=== PATIENT | female | born 1995 | race Hispanic/Latino ===

== ENCOUNTER 2017-08-12 16:25 | Emergency (ER) | payer OTHER ==
[2017-08-12 17:08] LABS: Bilirubin Negative (Negative); Blood, Urine Negative (Negative); Clarity CLEAR (Clear); Glucose, Urine (Dipstick) Negative (Negative); Leukocyte Small (Negative); Nitrite Negative (Negative); Protein, Urine (Dipstick) Negative (Neg-Trace); Specific Gravity, Urine 1.021 (1.002-1.036); pH, Urine 7.5 (5.0-9.0)
[2017-08-12 17:17] LABS: #Basophils 0.1 thou/uL (0.0-0.2); #Eosinphils 0.3 thou/uL (0.0-0.7); #Lymphocytes 1.5 thou/uL (1.20-3.40); #Neutrophils 5.3 thou/uL (1.40-6.50); %Basophils 1.3 % (0.0-1.0); %Eosinophils 3.2 % (0.0-10.0); %Lymphocytes 18.3 % (21.0-51.0); %Monocytes 11.9 % (0.0-10.0); %Neutrophils 65.3 % (42.0-75.0); Hemoglobin 11.3 g/dL (12.0-16.0); Mean Corpuscular HGB CONC 33.7 g/dL (32.0-36.0); Mean Corpuscular Hemoglobin 30.3 pg (27.0-31.0); Mean Corpuscular Volume 90.1 fl (81.0-99.0); Mean Platelet Volume 9.1 fL (7.4-10.4); Platelet Count 221 thou/uL (130-400); RBC Distribution Width 11.7 % (11.5-14.5); Red Blood Cell (RBC) Count 3.71 mill/uL (4.20-5.40); White Blood Cell (WBC) Count 8.1 thou/uL (4.8-10.8)
[2017-08-12 17:20] LABS: Bacteria/HPF Rare-Few HPF (None Seen); Hyaline Casts/LPF 0-3 HYALINE CAST LPF (0-3 Hyaline); Pathc Cast-AUWi Flag 0.13 (0-2.49); RBC/HPF 0-3 HPF (0-3)
--- NOTE | 2017-08-12 17:45 | ULT ---
PELVIC ULTRASOUND 08/12/17 HISTORY: Vaginal discharge and pain. Positive home test two weeks ago. TECHNIQUE: Multiplanar awad scale and color doppler images were obtained in a transabdominal pelvic ultrasound. Spectral analysis of the doppler waveforms of the ovaries were performed. FINDINGS: There is a gestational sac within the uterus. This contains a pole with a crown-rump length of 0.67 cm. This estimates gestational age at 6 weeks, 4 days. A yolk sac is seen within the gestational sac. A heart rate is detected at 118 beats per minute. No free fluid is seen in the pelvis. A dominant follicle is seen in the right ovary. Normal flow is s een within both ovaries. IMPRESSION: Single live intrauterine with estimated age of 6 weeks 4 days. POS: ISATU
[2017-08-15 03:15] LABS: Chlamydia by PCR Not Detected (NotDetected); GC by PCR Not Detected (NotDetected)
== END 2017-08-12 18:32 | disposition home or self-care (01) ==
LOC: ERS 16:25
DX: O20.0 Threatened abortion (principal); O99.89 Other specified diseases and conditions complicating pregnancy, childbirth and the puerperium; N89.8 Other specified noninflammatory disorders of vagina; Z3A.01 Less than 8 weeks gestation of pregnancy
CPT/HCPCS: 36415; 76856; 81003; 81015; 84702; 85025; 86900; 86901; 87086; 87480; 87491; 87510; 87591; 87660; 93976

== ENCOUNTER 2018-03-26 14:58 | Inpatient (IN) | payer OTHER ==
[~2018-03-26 14:58] MED LIST: Bupivacaine/Epinephrine 0.25% 30 ML VIAL ONE
[2018-03-26] MEDS: Lactated Ringer's 1,000 ML IV SCH ×2 (15:35→22:13)
[2018-03-26 15:55] VITALS: BMI 26.2
[2018-03-26] MEDS ORDERED: Promethazine HCl 25 MG/ML VIAL IM PRN ×2 (16:18)
[2018-03-26] MEDS ORDERED: Misoprostol 200 MCG TAB PR PRN (16:18)
[2018-03-26] MEDS ORDERED: Butorphanol Tartrate 1 MG/ML VIAL SLOW IVP PRN (16:18)
[2018-03-26] MEDS ORDERED: Lidocaine 1% (PF) 30 ML VIAL SC PRN ×2 (16:18)
[2018-03-26] MEDS ORDERED: Acetaminophen 500 MG TAB PO PRN (16:18)
[2018-03-26] MEDS ORDERED: Ibuprofen 800 MG TAB PO PRN (16:18)
[2018-03-26] MEDS ORDERED: HYDROcodone/Acetaminophen 5/325 mg Tablet PO PRN (16:18)
[2018-03-26] MEDS ORDERED: NS / Oxytocin 40 units/1000ml 1,000 ML IV PRN (16:18)
[2018-03-26] MEDS ORDERED: Zolpidem Tartrate 5 MG TAB PO PRN (16:18)
[2018-03-26] MEDS ORDERED: Ondansetron HCl/PF 4 MG/2 ML Vial IVP PRN ×2 (16:18)
[2018-03-26 16:29] LABS: Hemoglobin 10.2 g/dL (12.0-16.0); Mean Corpuscular HGB CONC 32.6 g/dL (32.0-36.0); Mean Corpuscular Hemoglobin 26.8 pg (27.0-31.0); Mean Corpuscular Volume 82.4 fL (78.0-98.0); Platelet Count 187 thou/uL (130-400); RBC Distribution Width 13.9 % (11.5-14.5); Red Blood Cell (RBC) Count 3.81 mill/uL (4.20-5.40); White Blood Cell (WBC) Count 8.8 thou/uL (4.8-10.8)
[2018-03-26] MEDS ORDERED: NS w/ Oxytocin 10 units 500 ML IV SCH (16:30)
[2018-03-26] MEDS ORDERED: Misoprostol 100 MCG TAB ONE (16:34)
[2018-03-26] MEDS: Misoprostol 100 MCG TAB VAG SCH (16:40)
[2018-03-26 16:59] LABS: HBSAg Index 0.18 S/CO (0-0.99); Hep B Surf Ag Non-Reactive S/CO (NonReactive); Syphilis Antibody Nonreactive (Nonreactive); Syphilis Antibody Index 0.03 S/CO (<1.00 Non-Reactive)
[2018-03-26 17:00] LABS: ALT (SGPT) 10 U/L (8-55); AST (SGOT) 17 U/L (5-34); Albumin 3.5 g/dL (3.5-5.0); Alkaline Phosphatase 364 U/L (40-150); Anion Gap 15 mmol/L (10-20); BUN (Urea Nitrogen) 8 mg/dL (7.0-18.7); Bilirubin, Total 0.2 mg/dL (0.2-1.2); Calc. Creatinine Clearance 150 mL/min (70-130); Calcium 8.9 mg/dL (7.8-10.44); Carbon Dioxide 18 mmol/L (22-29); Chloride 107 mmol/L (98-107); Estimated GFR-MDRD Greater than 90; Glucose 75 mg/dL (70-105); Protein, Total 6.5 g/dL (6.0-8.3); Sodium 136 mmol/L (136-145)
[2018-03-26] MEDS ORDERED: diphenhydrAMINE 25 MG CAP PO SCH (17:15)
--- NOTE | 2018-03-26 17:26 | PDOC.LDHP ---
Labor and Delivery H&P Chief complaint: scheduled induction HPI: 22 y/o LAF at 38 weeks 3 days by edc of 04/06. Reports increased itching all over body and rash. increased swelling. Denies headache or ruq pain. Some decreased movement. Was noted to be hypertensive in my office with blood pressure 134/98 and 150/96. Urine protein dip was negative.Rash c/w PUPPPS vs cholestasis... Current gestational age (weeks): 38 Due date: 04/06/18 Grav: 1 Para: 0 Current complications: gestational hypertension Abnormal US findings: No Current medications: pre- vitamins Previous surgical history: none Allergies/Adverse Reactions: Allergies Allergy/AdvReac Type Severity Reaction Status Date / Time No Known Allergies Allergy Verified 03/26/18 15:56 Social history: none - Physical Exam General: NAD Heart: RRR Lungs: CTAB Abdomen: gravid Extremeties: trace edema FHT: category 1 - Vaginal Exam cm dilated: 1 Effacement: 50% Station: -1 - OB Labs Blood type: A RH: positive Antibody Screen: negative HIV: negative RPR: negative HEPSAg: negative 1 hour GCT: negative GBS: negative Urine drug screen: not done Rubella: immune - Assessment L&D Assessment: medically indicated induction (Mild gestational hypertension. PUPPPS vs cholestastis with skin rash due to scratching. cytotec induction. Pre eclmpsia lab check. prn labetolol or magnesium for severe criteria.)
[2018-03-26] MEDS ORDERED: Labetalol HCl 100 MG/20 ML VIAL SLOW IVP PRN (19:09)
[2018-03-26] MEDS: diphenhydrAMINE 25 MG CAP PO PRN (23:47)
[2018-03-27] MEDS: Misoprostol 100 MCG TAB VAG SCH ×4 (00:11→06:39)
[2018-03-27] MEDS: diphenhydrAMINE 25 MG CAP PO PRN ×2 (06:17→12:42)
[2018-03-27] MEDS: Lactated Ringer's 1,000 ML IV SCH ×2 (06:17→09:58)
[2018-03-27] MEDS ORDERED: DISCONTINUE ALL PREVIOUS NARCOTICS FS SCH (08:30)
[2018-03-27] MEDS ORDERED: Naloxone HCl 0.4 mg/ml Vial IVP PRN ×2 (09:53)
[2018-03-27] MEDS ORDERED: Acetaminophen 325 MG TAB PO PRN (09:53)
[2018-03-27] MEDS ORDERED: Lactated Ringer's 500 ML IV PRN (09:53)
[2018-03-27] MEDS ORDERED: Promethazine HCl 25 MG/ML VIAL IM PRN (09:53)
[2018-03-27] MEDS ORDERED: ePHEDrine/0.9% NaCl/PF SYRINGE 50 mg/10 ml SLOW IVP PRN (09:53)
[2018-03-27] MEDS ORDERED: diphenhydrAMINE 50 MG/ML VIAL IVP PRN (09:53)
[2018-03-27] MEDS ORDERED: Ondansetron HCl/PF 4 MG/2 ML Vial IVP PRN (09:53)
[2018-03-27] MEDS ORDERED: Eucerin (Mineral Oil/Petrolatum,White) 30 gm Jar TOP PRN (09:53)
[2018-03-27] MEDS: Bupivacaine 0.5% 20 ML, fentaNYL Citrate/PF 400 MCG in Sodium Chloride 0.9% 72 ML EPIDURAL SCH ×2 (09:59→16:04)
[2018-03-27] MEDS ORDERED: Communication Order-Pharmacy FS SCH (10:00)
[2018-03-27] MEDS ORDERED: fentaNYL Citrate/PF 400 MCG, Bupivacaine 0.5% 20 ML in Sodium Chloride 0.9% 72 ML EPIDURAL SCH (10:00)
[2018-03-27] MEDS ORDERED: Fentanyl 100 MCG/2 ML VIAL ONE (15:48)
[2018-03-27] MEDS ORDERED: Acetaminophen 1,000 MG in Premix Bag 1 BAG IVPB SCH (19:00)
[2018-03-27] MEDS ORDERED: Bisacodyl 10 MG SUPP PR PRN (20:18)
[2018-03-27] MEDS ORDERED: Benzocaine/Menthol 20-0.5% 60 ML CAN TOP PRN (20:18)
[2018-03-27] MEDS ORDERED: Milk Of Magnesia 30 ML UDCUP PO PRN (20:18)
[2018-03-27] MEDS ORDERED: Preparation H Ointment 28 GM TUBE PR PRN (20:18)
[2018-03-27] MEDS ORDERED: Adacel (T-DAP) 0.5 ML VIAL IM ONE (20:18)
[2018-03-27] MEDS ORDERED: Lanolin Ointment 7 GM TUBE TOP PRN (20:18)
[2018-03-27] MEDS ORDERED: NS / Oxytocin 40 units/1000ml 1,000 ML IV SCH (20:30)
[2018-03-27] MEDS ORDERED: Carboprost 250 MCG/ML AMP ONE (20:50)
--- NOTE | 2018-03-27 21:20 | PDOC.OPDEL ---
OB Operative/Delivery Note Delivery Dr/Surgeon: Sanya Pre-Delivery Diagnosis: medically indicated induction Procedure/Post Delivery Dx: operative vaginal delivery Weeks gestation: 38 Anesthesia: epidural - Findings A Sex: female - 1 min: 9 - 5 min: 9 - Additional Findings/Plan Placenta delivered: spontaneous Repaired Obstetrical Laceration: 2nd degree Estimated blood loss: 1433 ml QBL Compilations/Other Findings: Post hemorrhage due to atony. Vigorous bimaual massage with 250 mg im hemabate/800mcg cytotec/ one gram txa given with resolution... Post delivery plan: recovery in LICU (for PPH monitoring)
--- NOTE | 2018-03-27 21:29 | PDOC.EVN ---
Event Note - Event Note Event Note: [employer]CH[employer]ICIAN SHELBY NOTE: PP note: @2129: Delivery by Sanya...PPH: Reviewed care with Sanya. PPH of approx 1433ml...slight tachycardia at 110. T& C for 2 units, we will give 1 unit now for pulse and suspected drop in HCT. PreHCT was 31. We will keep on L&D tonight. Negron to monitor UOP. Has received: 800mcg cytotec, 250mg hemabate, and TXA 1 gram per ACOG.
[2018-03-27 21:49] LABS: Hemoglobin 8.1 g/dL (12.0-16.0); Mean Corpuscular HGB CONC 31.5 g/dL (32.0-36.0); Mean Corpuscular Hemoglobin 26.4 pg (27.0-31.0); Mean Corpuscular Volume 83.7 fL (78.0-98.0); Mean Platelet Volume 10.4 fL (7.4-10.4); Platelet Count 154 thou/uL (130-400); RBC Distribution Width 13.8 % (11.5-14.5); Red Blood Cell (RBC) Count 3.07 mill/uL (4.20-5.40); White Blood Cell (WBC) Count 20.6 thou/uL (4.8-10.8)
[2018-03-27] MEDS ORDERED: HYDROcodone/Acetaminophen 5/325 mg Tablet PO PRN (22:39)
[2018-03-28] MEDS ORDERED: SODIUM CHLORIDE 0.9% IVPB SCH (00:30)
[2018-03-28] MEDS ORDERED: TRANEXAMIC ACID IVPB SCH (00:30)
[2018-03-28] MEDS ORDERED: Tranexamic Acid 1,000 MG in Sodium Chloride 0.9% 250 ML 250 ML IVP SCH (00:30)
[2018-03-28] MEDS: Docusate Calcium (SURFAK) 240 MG CAP PO SCH ×3 (00:37→21:09)
[2018-03-28] MEDS: traMADol HCl 50 MG TAB PO PRN ×2 (04:03→17:16)
--- NOTE | 2018-03-28 05:50 | PDOC.EVN ---
Event Note - Event Note Event Note: L&D Check: NO further Vag Bleed. S/P 1 unit PRBC. Currently, second 1 gram of TXA infusing over IVPB (8 hr infusion). Last HCT was 26. I have ordered another for 0600 this AM.
[2018-03-28 06:27] LABS: Hemoglobin 8.7 g/dL (12.0-16.0)
--- NOTE | 2018-03-28 06:55 | PDOC.EVN ---
Event Note - Event Note Event Note: 0600 HCT was 26.8
[2018-03-28] MEDS: Ferrous Sulfate 325 MG TAB PO SCH ×2 (08:03→17:16)
[2018-03-28] MEDS: Ibuprofen 600 MG TAB PO PRN ×2 (08:08→21:09)
[2018-03-28] MEDS: Prenatal Vitamin 1 TAB PO SCH (09:39)
[2018-03-28] MEDS: Misoprostol 100 MCG TAB VAG SCH ×2 (10:00→10:01)
[2018-03-29] MEDS: Ibuprofen 600 MG TAB PO PRN ×2 (04:44→11:12)
--- NOTE | 2018-03-29 08:06 | PDOC.PP ---
Post Progress Note Post Day #: ambulting. no orthostatic sxs. PO intake tolerated: yes Flatus: yes Ambulation: yes Vital Signs (12 hours) Temp Pulse Resp BP Pulse Ox 03/29/18 04:32 87 121/70 03/29/18 00:05 98.1 F 87 18 117/62 97 03/28/18 22:20 98.2 F 97 18 131/71 98 Weight Weight 153 lb - Physical Examination General: NAD Cardiovascular: no m/r/g, RRR Respiratory: clear to auscultation bilaterally, non-labored breathing Abdominal: + bowel sounds, lochia, no distention, appropriately TTP Result Diagrams: 03/28/18 06:21 03/26/18 15:45 Additional Labs: Post Labs Blood Type A POSITIVE 03/26/18 15:45 Hep Bs Antigen Non-Reactive S/CO (NonReactive) 03/26/18 15:45 - Assessment/Plan post day 2 blood pressure normalized. Asymptomatic blood loss anemia--PPH, s/p one unit prbc's. observe today, if doing well-discharge home this evening. Has iron at home. recommend pnv daily and additional ioron tablet daily. post follow up in one week for blood pressure check and 6 weeks.
[2018-03-29] MEDS: Prenatal Vitamin 1 TAB PO SCH (09:42)
[2018-03-29] MEDS: Ferrous Sulfate 325 MG TAB PO SCH (09:42)
[2018-03-29] MEDS: Docusate Calcium (SURFAK) 240 MG CAP PO SCH (09:42)
[2018-03-29 11:49] VITALS: TEMP 97.9
[2018-03-29 13:13] VITALS: BP 134/84
== END 2018-03-29 16:45 | disposition home or self-care (01) | DRG 774 ==
LOC: L&D 14:58 → UNDOADMIN 14:58 → 3SW 16:19 → OBSVTOIN 16:19 → L&D 03-27 23:15 → INTOOBSV 03-27 23:15 → UNDOADMOB 03-27 23:15 → OBSVTOIN 03-27 23:15 → 3SW 03-28 08:52 → L&D 03-28 08:52 → UNDODISOB 03-29 16:45 → EDSTATUS 04-06 14:56
PROVIDERS: ADMIT Obstetrics & Gynecology; ATTEND Obstetrics & Gynecology
PROC: 10D07Z3 Extraction of Products of Conception, Low Forceps, Via Natural or Artificial Opening (ICD-10-PCS; principal; 2018-03-27)
PROC: 0KQM0ZZ Repair Perineum Muscle, Open Approach (ICD-10-PCS; 2018-03-27)
DX: O13.3 Gestational [pregnancy-induced] hypertension without significant proteinuria, third trimester (principal); O72.1 Other immediate postpartum hemorrhage; O75.81 Maternal exhaustion complicating labor and delivery; Z3A.38 38 weeks gestation of pregnancy; Z37.0 Single live birth; O70.1 Second degree perineal laceration during delivery; O69.81X0 Labor and delivery complicated by cord around neck, without compression, not applicable or unspecified; O26.893 Other specified pregnancy related conditions, third trimester
CPT/HCPCS: 36415; 36430; 51702; 80053; 85014; 85018; 85027; 86780; 86850; 86900; 86901; 87340; A4216; J0131; J2001; J3010; J3490; J7050; P9016

== ENCOUNTER 2019-07-25 20:09 | Emergency (ER) | payer OTHER ==
[2019-07-25 22:31] LABS: Anion Gap 11 mmol/L (10-20); BUN (Urea Nitrogen) 10 mg/dL (7.0-18.7); Calc. Creatinine Clearance 0 mL/min (70-130); Calcium 9.3 mg/dL (7.8-10.44); Carbon Dioxide 24 mmol/L (22-29); Chloride 106 mmol/L (98-107); Estimated GFR-MDRD Greater than 90; Glucose 92 mg/dL (70-105); Potassium 3.4 mmol/L (3.5-5.1); Sodium 138 mmol/L (136-145)
[2019-07-25 23:06] LABS: Bacteria/HPF 4+ HPF (None Seen); Bilirubin Negative (Negative); Blood, Urine Negative (Negative); Clarity Clear (Clear); Glucose, Urine (Dipstick) Normal (Negative); Leukocyte 25 Leu/uL (Negative); Nitrite 2+ (Negative); Protein, Urine (Dipstick) Negative (Neg-Trace); RBC/HPF 0-3 HPF (0-3); Squamous Epithelial 0-3 HPF (0-3); Urobilinogen Normal mg/dL (Less than 2); WBC/HPF 0-3 HPF (0-3)
--- NOTE | 2019-07-26 08:13 | ULT ---
PRELIMINARY REPORT/[facility]/EMERGENCY AFTER HOURS PROCEDURE: EXAM: US Obstetrical, Complete <14 weeks CLINICAL HISTORY: Pelvic pain, lower back pain, brown/pink discharge tonight HCG 06169 TECHNIQUE: Transvaginal and transabdominal imaging of the maternal pelvis and a <14 week gestation [facility] image documentation. COMPARISON: None provided. FINDINGS: GESTATION: A CRL of 2.1 mm corresponds to 5 weeks 5 days however there is no evidence for heart beat at this time UTERUS: Unremarkable. No myometrial mass. Measures 8.3 x 4.6 x 4.9 cm CERVIX: Closed. Unremarkable. OVARIES: Unremarkable. No mass. The LEFT side measures 2.3 x 2.8 x 1.3 cm and demonstrates a small c yst measuring 9 mm. The RIGHT side measures 2.7 x 1.5 x 2.5 cm FREE FLUID: No free fluid. IMPRESSION:Early intrauterine gestation with no evidence for heartbeat at this time ELECTRONICALLY SIGNED BY: Kobi Nguyen MD Jul 26, 2019 12:25:01 AM [employer] IN[employer]KER FINAL REPORT EMERGENT AFTER HOURS PELVIC ULTRASOUND: HISTORY: , vaginal bleeding. Quantitative beta hCG level of 10,568. IMPRESSION: 1. There is a fluid collection within the endometrial canal. There is an echogenic focus seen in the presumed gestational sac, but a yolk sac or definitive pole is unable to be definitively delineated on this exam. Mean sac diameter is 0.9 cm which would correspond to gestational age of 5 w eeks and 5 days. No heart tones are detected at this time. Findings may be related to a very early intrauterine gestation, and follow-up ultrasound examination in one week is recommended. Pseudo gestational sac related to ectopic could not be definitively excluded. Continued follow-up of quantitative beta-hCG levels is also recommended. 2. Findings are in overall agreement with initial report by [facility], but followup evaluation is recommended as described above. Transcribed Date/Time: 07/26/2019 8:22 AM
--- NOTE | 2019-07-27 14:00 | EKG ---
Test Reason : Blood Pressure : / mmHG Vent. Rate : 099 BPM Atrial Rate : 099 BPM P-R Int : 130 ms QRS Dur : 098 ms QT Int : 318 ms P-R-T Axes : 041 042 -04 degrees QTc Int : 408 ms Sinus rhythm with sinus arrhythmia with occasional Premature ventricular complexes Cannot rule out Anterior infarct , age undetermined Abnormal ECG Confirmed by GRANT MCCARTY DO ([id number]), image editor YONG ARREOLA ([id number]) on 07/27/2019 2:00:06 PM Referred By: Confirmed By:GRANT MCCARTY DO
[2019-07-27 21:58] LABS: Chlamydia by PCR Not Detected (NotDetected); GC by PCR Not Detected (NotDetected)
== END 2019-07-26 01:06 | disposition home or self-care (01) ==
LOC: ERS 20:09
DX: O23.41 Unspecified infection of urinary tract in pregnancy, first trimester (principal); O46.91 Antepartum hemorrhage, unspecified, first trimester; Z3A.01 Less than 8 weeks gestation of pregnancy
CPT/HCPCS: 36415; 76856; 80048; 81003; 81015; 84702; 86900; 86901; 87077; 87086; 87186; 87480; 87491; 87510; 87591; 87660; 93005

== ENCOUNTER 2019-08-01 19:49 | Emergency (ER) | payer OTHER ==
[2019-08-01 20:20] LABS: #Basophils 0.1 thou/uL (0.0-0.2); #Eosinphils 0.1 thou/uL (0.0-0.7); #Lymphocytes 1.8 thou/uL (1.20-3.40); #Monocytes 0.4 thou/uL (0.11-0.59); #Neutrophils 4.3 thou/uL (1.40-6.50); %Basophils 1.1 % (0.0-1.0); %Eosinophils 1.9 % (0.0-10.0); %Lymphocytes 27.3 % (21.0-51.0); %Monocytes 5.8 % (0.0-10.0); %Neutrophils 63.9 % (42.0-75.0); Hemoglobin 12.7 g/dL (12.0-16.0); Mean Corpuscular HGB CONC 33.6 g/dL (32.0-36.0); Mean Corpuscular Hemoglobin 29.6 pg (27.0-31.0); Mean Platelet Volume 9.6 fL (7.4-10.4); Platelet Count 234 thou/uL (130-400); RBC Distribution Width 11.2 % (11.5-14.5); White Blood Cell (WBC) Count 6.7 thou/uL (4.8-10.8)
[2019-08-01 20:27] LABS: BHCG - Serum POSITIVE (NEGATIVE); Pregs Control Background? CLEAR/WHITE (CLR/WHITE); Pregs Control Bar Appear? YES (CONTROL BAR)
--- NOTE | 2019-08-01 21:03 | ULT ---
Exam: Transabdominal and endovaginal pelvic ultrasound HISTORY:Follow-up pelvic ultrasound. Evaluate for possible viable intrauterine gestation. No pressure . Vaginal bleeding with clots since yesterday. Pain x3 days. COMPARISON:07/26/2019 TECHNIQUE: Transabdominal and endovaginal imaging of the pelvis is performed. Ovaries are interrogate d with grayscale, color flow, Doppler imaging and spectral wave form analysis FINDINGS: Uterus: No myometrial masses. Uterus measurin.2 x 5.1 x 5.3 cm. Endometrium: Within the endometrium, this anechoic focus with echotexture is which may represent a co mplex gestational sac. Mean sac diameter is 1.1 cm corresponding to gestational age of 5 weeks 6 days. Previously, the gestational sac diameter had a age of 5 weeks 5 days. Yolk sac and pole are not appreciated within the gestational sac.. Free fluid: None Right ovary: Normal echotexture Right ovary measurement: 1.2 x 1.6 x 2.6 cm Left ovary: Small anechoic focus measuring 0.3 cm may represent a follicle Left ovary measurements: 2.9 x 1.5 x 1.7 cm Ovarian Doppler: There is vascular flow to the left and right ovary. IMPRESSION: Complex anechoic focus in the endometrium which may represent a gestational sac. Gestational age by m eduardo sac diameter is 5 weeks 6 days. Previously, the gestational age by mean sac diameter was 5 weeks 5 days. Absent pole and yolk sac. Differential considerations include an early intrauteri ne versus a sonographically occult ectopic . Follow-up ultrasound and serial beta-hCG are recommended. Transcribed Date/Time: 08/01/2019 9:11 PM
[2019-08-01 21:36] LABS: Bacteria/HPF None Seen HPF (None Seen); Bilirubin Negative (Negative); Blood, Urine 2+ (Negative); Clarity Clear (Clear); Glucose, Urine (Dipstick) Normal (Negative); Leukocyte 25 Leu/uL (Negative); Nitrite Negative (Negative); Protein, Urine (Dipstick) 20 mg/dL (Neg-Trace); Squamous Epithelial 0-3 HPF (0-3); WBC/HPF 0-3 HPF (0-3)
== END 2019-08-01 22:08 | disposition home or self-care (01) ==
LOC: ERS 19:49
DX: O03.9 Complete or unspecified spontaneous abortion without complication (principal)
CPT/HCPCS: 36415; 76856; 81003; 81015; 84702; 84703; 85025; 86900; 86901